=== PATIENT | female | born 1985 | race Caucasian/White ===

== ENCOUNTER → 2018-08-12 | Outpatient (CLI) | payer BC ==
[~2018-08-12] MED LIST: Excedrin Extra1 EACH PO; Hair, Skin & N1 EACH PO; IBUP600 PO; MACA ROOT PO; Pepcid40 MG PO
== END ==
LOC: LAB SHORT 09:07 → PLD 09:07
DX: N94.10 Unspecified dyspareunia (principal)
CPT/HCPCS: 88305